=== PATIENT | female | born 1965 | race Caucasian/White ===

== ENCOUNTER 2017-03-21 08:32 | Emergency (ER) | payer SELFPAY ==
[2017-03-21 08:41] VITALS: BP 138/80; PULSE 88; RESP 18; TEMP 98; O2SAT 98
[2017-03-21] MEDS ORDERED: SODIUM CHLOR 0.9% 1000 ML INJ 1,000 ML IV SCH (08:46)
--- NOTE | 2017-03-21 08:52 | PD ---
HPI Chief Complaint: Psychiatric Symptoms Time Seen by Provider: 08:46 Travel History International Travel<30 days: No Contact w/Intl Traveler<30days: No Traveled to known affect area: No History of Present Illness HPI The patient is a 51-year-old female who presents to the emergency department via EMS for abdominal pain and psychiatric evaluation. The patient has a history of schizophrenia and bipolar affective disorder and has not been taking her Lexapro. The patient states she has been living on the streets for the last 2 weeks and people have been yelling "go home you [place] qu[place]o ". The patient states she is having homicidal ideations, states she was to harm the people that are her "an AMI ". She does admit to using crack cocaine, approximately one month ago, and drinking alcohol yesterday. She also complains of nausea and vomiting for the last month with one episode of diarrhea yesterday. She complains of increasing abdominal distention and pain with decreased appetite. She does no previous history of section and cholecystectomy. She denies any known history of small bowel obstruction. Symptoms are moderate, there are no current alleviating or exacerbating factors. PFSH Past Medical History Bipolar Disorder: Yes Anxiety: Yes Depression: Yes Diminished Hearing: No GERD: Yes Psychiatric: Yes Migraines: Yes Schizophrenia: Yes Ulcer: Yes ?: Not Menopausal: Yes Past Surgical History Abdominal Surgery: Yes (CHOLECYSTECTOMY) Section: Yes Cholecystectomy: Yes Social History Alcohol Use: Yes (8 beers daily) Tobacco Use: Yes Substance Use: Yes (crack 1 MONTH AGO ) Allergies-Medications (Allergen,Severity, Reaction): Coded Allergies: No Known Allergies (Verified , 03/21/17) Reported Meds & Prescriptions Reported Meds & Active Scripts Active No Active Prescriptions or Reported Medications Review of Systems Except as stated in HPI: all other systems reviewed are Neg General / Constitutional: No: Fever Cardiovascular: No: Chest Pain or Discomfort Respiratory: No: Shortness of Breath Gastrointestinal: Positive: Nausea, Vomiting, Diarrhea, Abdominal Pain Genitourinary: No: Dysuria Psychiatric: Positive: Disorder of Thought, Mood Disorder, Substance Abuse, Homicidal Ideation Physical Exam Narrative GENERAL: Awake, alert, nontoxic-appearing 51-year-old female who appears her stated age and is in no acute respiratory distress. SKIN: Focused skin assessment warm/dry. HEAD: Atraumatic. Normocephalic. EYES: Pupils equal and round. No scleral icterus. No injection or drainage. ENT: No nasal bleeding or discharge. Mucous membranes pink and moist. NECK: Trachea midline. No JVD. CARDIOVASCULAR: Regular rate and rhythm. No murmur appreciated. RESPIRATORY: No accessory muscle use. Clear to auscultation. Breath sounds equal bilaterally. GASTROINTESTINAL: Abdomen soft, no obvious distention, no rebound tenderness, guarding, or rigidity. MUSCULOSKELETAL: No obvious deformities. No clubbing. No cyanosis. No edema. NEUROLOGICAL: Awake and alert. No obvious cranial nerve deficits. Motor grossly within normal limits. Normal speech. Nonfocal. Oriented to person, place, month, and year. PSYCHIATRIC: Odd affect. Data Data Last Documented VS Vital Signs Date Time Temp Pulse Resp B/P (MAP) Pulse Ox O2 Delivery O2 Flow Rate FiO2 03/21/17 08:41 98.0 88 18 138/80 (99) 98 Orders Orders Complete Blood Count With Diff (03/21/17 08:46) Comprehensive Metabolic Panel (03/21/17 08:46) Lipase (03/21/17 08:46) Urinalysis - C+S If Indicated (03/21/17 08:46) Ct Abd/Pel W/O Iv Contrast (03/21/17 08:46) Iv Access Insert/Monitor (03/21/17 08:46) Ecg Monitoring (03/21/17 08:46) Oximetry (03/21/17 08:46) Morphine Inj (Morphine Inj) (03/21/17 09:00) Ondansetron Inj (Zofran Inj) (03/21/17 09:00) Sodium Chlor 0.9% 1000 Ml Inj (Ns 1000 M (03/21/17 08:46) Sodium Chloride 0.9% Flush (Ns Flush) (03/21/17 09:00) Alcohol (Ethanol) (03/21/17 08:46) Drug Screen, Random Urine (03/21/17 08:46) Psych Screen (03/21/17 08:46) Labs Laboratory Tests Test 03/21/17 08:50 03/21/17 09:00 White Blood Count 7.2 TH/MM3 Red Blood Count 4.40 MIL/MM3 Hemoglobin 14.1 GM/DL Hematocrit 41.3 % Mean Corpuscular Volume 93.9 FL Mean Corpuscular Hemoglobin 32.1 PG Mean Corpuscular Hemoglobin Concent 34.2 % Red Cell Distribution Width 13.6 % Platelet Count 250 TH/MM3 Mean Platelet Volume 6.8 FL Neutrophils (%) (Auto) 61.3 % Lymphocytes (%) (Auto) 26.8 % Monocytes (%) (Auto) 7.5 % Eosinophils (%) (Auto) 4.1 % Basophils (%) (Auto) 0.3 % Neutrophils # (Auto) 4.4 TH/MM3 Lymphocytes # (Auto) 1.9 TH/MM3 Monocytes # (Auto) 0.5 TH/MM3 Eosinophils # (Auto) 0.3 TH/MM3 Basophils # (Auto) 0.0 TH/MM3 CBC Comment DIFF FINAL Differential Comment Blood Urea Nitrogen 15 MG/DL Creatinine 0.58 MG/DL Random Glucose 101 MG/DL Total Protein 6.8 GM/DL Albumin 3.7 GM/DL Calcium Level 8.4 MG/DL Alkaline Phosphatase 173 U/L Aspartate Amino Transf (AST/SGOT) 11 U/L Alanine Aminotransferase (ALT/SGPT) 30 U/L Total Bilirubin 0.3 MG/DL Sodium Level 140 MEQ/L Potassium Level 3.7 MEQ/L Chloride Level 108 MEQ/L Carbon Dioxide Level 23.2 MEQ/L Anion Gap 9 MEQ/L Estimat Glomerular Filtration Rate 109 ML/MIN Lipase 246 U/L Ethyl Alcohol Level LESS THAN 3 MG/DL Urine Color YELLOW Urine Turbidity CLEAR Urine pH 6.0 Urine Specific [place] 1.019 Urine Protein NEG mg/dL Urine Glucose (UA) NEG mg/dL Urine Ketones NEG mg/dL Urine Occult Blood NEG Urine Nitrite NEG Urine Bilirubin NEG Urine Urobilinogen LESS THAN 2.0 MG/DL Urine Leukocyte Esterase NEG Urine RBC 1 /hpf Microscopic Urinalysis Comment CULT NOT INDICATED MDM Medical Decision Making Medical Screen Exam Complete: Yes Emergency Medical Condition: Yes Medical Record Reviewed: Yes Interpretation(s) Last Impressions Abdomen/Pelvis CT 03/21/17 0873 Signed Impressions: Service Date/Time: March 09:21 - CONCLUSION: Area of inhomogeneity in the liver could partially be due to the inhomogeneous fatty infiltration and partially related to the ringlike enhancement seen on the study from 2013 of uncertain etiology, however most likely benign. Pieter Noble MD Laboratory Tests Test 03/21/17 08:50 03/21/17 09:00 White Blood Count 7.2 TH/MM3 Red Blood Count 4.40 MIL/MM3 Hemoglobin 14.1 GM/DL Hematocrit 41.3 % Mean Corpuscular Volume 93.9 FL Mean Corpuscular Hemoglobin 32.1 PG Mean Corpuscular Hemoglobin Concent 34.2 % Red Cell Distribution Width 13.6 % Platelet Count 250 TH/MM3 Mean Platelet Volume 6.8 FL Neutrophils (%) (Auto) 61.3 % Lymphocytes (%) (Auto) 26.8 % Monocytes (%) (Auto) 7.5 % Eosinophils (%) (Auto) 4.1 % Basophils (%) (Auto) 0.3 % Neutrophils # (Auto) 4.4 TH/MM3 Lymphocytes # (Auto) 1.9 TH/MM3 Monocytes # (Auto) 0.5 TH/MM3 Eosinophils # (Auto) 0.3 TH/MM3 Basophils # (Auto) 0.0 TH/MM3 CBC Comment DIFF FINAL Differential Comment Blood Urea Nitrogen 15 MG/DL Creatinine 0.58 MG/DL Random Glucose 101 MG/DL Total Protein 6.8 GM/DL Albumin 3.7 GM/DL Calcium Level 8.4 MG/DL Alkaline Phosphatase 173 U/L Aspartate Amino Transf (AST/SGOT) 11 U/L Alanine Aminotransferase (ALT/SGPT) 30 U/L Total Bilirubin 0.3 MG/DL Sodium Level 140 MEQ/L Potassium Level 3.7 MEQ/L Chloride Level 108 MEQ/L Carbon Dioxide Level 23.2 MEQ/L Anion Gap 9 MEQ/L Estimat Glomerular Filtration Rate 109 ML/MIN Lipase 246 U/L Ethyl Alcohol Level LESS THAN 3 MG/DL Urine Color YELLOW Urine Turbidity CLEAR Urine pH 6.0 Urine Specific [place] 1.019 Urine Protein NEG mg/dL Urine Glucose (UA) NEG mg/dL Urine Ketones NEG mg/dL Urine Occult Blood NEG Urine Nitrite NEG Urine Bilirubin NEG Urine Urobilinogen LESS THAN 2.0 MG/DL Urine Leukocyte Esterase NEG Urine RBC 1 /hpf Microscopic Urinalysis Comment CULT NOT INDICATED Differential Diagnosis Differential diagnosis includes schizophrenia, schizoaffective disorder, bipolar affective disorder, substance induced mood disorder, pancreatitis, partial small bowel obstruction, colitis, gastroenteritis, malingering. Narrative Course IV was established, labs are drawn and sent, and the patient was placed on cardiac telemetry monitoring and continuous pulse oximetry monitoring. The patient was administer morphine, Zofran, and IV fluids. Noncontrast CT of the abdomen and pelvis was ordered. The patient's labs are unremarkable, UA was negative. CT reveals chronic lesion in the liver, most likely benign. The patient is medically cleared to be evaluated by psychiatry. Disposition as per psych. Diagnosis Primary Impression: Abdominal pain Qualified Codes: R10.84 - Generalized abdominal pain Additional Impression: Schizophrenia Qualified Codes: F20.9 - Schizophrenia, unspecified Scripts No Active Prescriptions or Reported Meds Condition: Stable Damien Carroll MD Mar 21, 2017 08:52
[2017-03-21] MEDS ORDERED: ONDANSETRON HCL 4 MG/2 ML VIAL IVP ONE (09:00)
[2017-03-21] MEDS ORDERED: MORPHINE SULFATE 4 MG/ML INJ IV PUSH ONE (09:00)
[2017-03-21] MEDS ORDERED: SODIUM CHLORIDE 0.9% FLUSH 10 ML FLUSH IV FLUSH PRN (09:00)
[2017-03-21 09:32] LABS: AUTOMATED NEUTROPHIL # 4.4 TH/MM3 (1.8-7.7); BASOPHIL % 0.3 % (0.0-2.0); EOSINOPHIL # 0.3 TH/MM3 (0-0.4); EOSINOPHIL % 4.1 % (0.0-4.0); HEMATOCRIT 41.3 % (35.0-46.0); HEMO FLAGS DIFF FINAL; LYMPH % 26.8 % (9.0-44.0); LYMPHOCYTE # 1.9 TH/MM3 (1.0-4.8); MEAN CELL VOLUME 93.9 FL (80.0-100.0); MEAN CORPUSCULAR HEMOGLOBIN 32.1 PG (27.0-34.0); MEAN CORPUSCULAR HGB CONC 34.2 % (32.0-36.0); MONO % 7.5 % (0.0-8.0); NEUT % 61.3 % (16.0-70.0); PLATELET COUNT 250 TH/MM3 (150-450); RED CELL DISTRIBUTION WIDTH 13.6 % (11.6-17.2); WHITE BLOOD COUNT 7.2 TH/MM3 (4.0-11.0)
--- NOTE | 2017-03-21 09:47 | RADRPT ---
EXAM DATE/TIME: 03/21/2017 09:21 [facility] COMPARISON: CT ABDOMEN & PELVIS W CONTRAST, August 09, 2013, 8:07. INDICATIONS : Abdominal pain. ORAL CONTRAST: No oral contrast ingested. RADIATION DOSE: 6.11 CTDIvol (mGy) MEDICAL HISTORY : None SURGICAL HISTORY : Cholecystectomy. ENCOUNTER: Initial ACUITY: 1 day PAIN SCALE: 3/10 LOCATION: lower quadrant TECHNIQUE: Volumetric scanning of the abdomen and pelvis was performed. Using automated exposure control and adjustment of the mA and/or kV according to patient size, radiation dose was kept as low as reasonably achievable to obtain optimal diagnostic quality images. DICOM format image data is av ailable electronically for review and comparison. FINDINGS: CT Abdomen: The liver appears inhomogeneous and may be due to inhomogeneous fatty infiltration with a n approximate 1.5 cm cyst. The prior study demonstrated an enhancing ringlike area and the right hepa tic lobe which is barely visualized partially correlating with the area of inhomogeneity described ab ove not significantly changed most likely benign and of uncertain etiology. There is evidence for jose armando or cholecystectomy. The spleen, pancreas, kidneys, adrenals are unremarkable. There is no evidence fo r any appreciable pathological adenopathy, free fluid, or bowel obstruction. Large hiatal hernia is seen. CT pelvis: There is no evidence for mass, abscess formation, or any significant adenopathy within the pelvis. There is a small subcentimeter bone island involving L5 vertebra and not changed. CONCLUSION: Area of inhomogeneity in the liver could partially be due to the inhomogeneous fatty infiltration and partially related to the ringlike enhancement seen on the study from 2013 of uncerta in etiology, however most likely benign. Pieter Noble MD on March 21, 2017 at 9:41 Board Certified Radiologist. This report was verified electronically.
[2017-03-21 09:48] LABS: AST (GOT) 11 U/L (15-37); BLOOD UREA NITROGEN 15 MG/DL (7-18); GLOMERULAR FILTRATION RATE 109 ML/MIN (>89)
[2017-03-21 09:49] LABS: ALT (GPT) 30 U/L (10-53); ANION GAP 9 MEQ/L (5-15); BICARBONATE 23.2 MEQ/L (21.0-32.0); CHLORIDE 108 MEQ/L (98-107); POTASSIUM 3.7 MEQ/L (3.5-5.1); SODIUM (NA) 140 MEQ/L (136-145)
[2017-03-21 09:52] LABS: ALKALINE PHOSPHATASE 173 U/L (45-117); TOTAL BILIRUBIN ADULT 0.3 MG/DL (0.2-1.0)
[2017-03-21 09:52] LABS: BLOOD, URINE NEG (NEG); COMMENT (UR) CULT NOT INDICATED; CULTURE IF INDICATED CULT NOT INDICATED; GLUCOSE,URINE NEG (NEG); KETONE, URINE NEG (NEG); NITRITE,URINE NEG (NEG); URINE COLOR YELLOW (YELLW/STRAW)
[2017-03-21 09:57] LABS: ALCOHOL LESS THAN 3 MG/DL (0-5)
[2017-03-21 12:35] VITALS: BP 140/82; PULSE 84; RESP 16; O2SAT 99
[2017-03-21 21:14] VITALS: BP 128/60; PULSE 73; RESP 18; TEMP 98.2; O2SAT 96
[2017-03-22 02:18] VITALS: BP 119/83; PULSE 69; RESP 17; O2SAT 99
[2017-03-22 03:48] VITALS: BP 119/83; PULSE 69; RESP 17; TEMP 98.2; O2SAT 99
[2017-03-22 06:35] VITALS: BP 138/65; PULSE 69; RESP 18; O2SAT 97
[2017-03-22 09:59] VITALS: BP 132/60; PULSE 91; RESP 18
[2017-03-22] MEDS ORDERED: ACETAMINOPHEN 325 MG TAB PO ONE (14:15)
[2017-03-22 14:58] VITALS: BP 132/61; TEMP 98
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
== END 2017-03-22 16:06 | disposition home or self-care (01) ==
LOC: MERGE 08:32 → NEPE 08:32 → NEPJ 03-22 16:06
DX: R10.84 Generalized abdominal pain (principal); F20.9 Schizophrenia, unspecified; R11.2 Nausea with vomiting, unspecified; R19.7 Diarrhea, unspecified; R45.850 Homicidal ideations; Z72.0 Tobacco use; Z86.59 Personal history of other mental and behavioral disorders; Z87.19 Personal history of other diseases of the digestive system; Z86.69 Personal history of other diseases of the nervous system and sense organs
CPT/HCPCS: 74176; 80053; 80307; 81001; 83690; 85025; 96374; 96375; 99285; J2270; J2405; J7030

== ENCOUNTER 2017-08-23 11:18 | Emergency (ER) | payer SELFPAY ==
[~2017-08-23] VITALS: Ht 160 cm; Wt 68.0 kg
[2017-08-23 11:19] VITALS: BP 148/75; PULSE 88; RESP 18; TEMP 98.2; O2SAT 99
[2017-08-23 12:03] LABS: BACTERIA, URINE OCC /hpf; BILIRUBIN, URINE NEG (NEG); BLOOD, URINE MOD (NEG); GLUCOSE,URINE NEG (NEG); KETONE, URINE NEG (NEG); MUCUS URINE FEW /lpf (OCC); NITRITE,URINE POS (NEG); PH, URINE 5.5 (5.0-8.5); SQUAMOUS EPITHELIAL CELL URINE 1 /hpf (0-5); URINE COLOR YELLOW (YELLW/STRAW); URINE LEUKOCYTE ESTERASE LARGE (NEG); WHITE BLOOD CELL CLUMPS MOD
== END 2017-08-23 12:54 | disposition left against medical advice (07) ==
LOC: NED 11:18
DX: R30.0 Dysuria (principal); B96.20 Unspecified Escherichia coli [E. coli] as the cause of diseases classified elsewhere; Z59.0 Homelessness; Z53.21 Procedure and treatment not carried out due to patient leaving prior to being seen by health care provider
CPT/HCPCS: 81001; 87077; 87086; 87186; 99281

== ENCOUNTER 2017-11-23 21:01 | Emergency (ER) | payer BC ==
[2017-11-23 21:07] VITALS: BP 140/63; PULSE 109; RESP 16; TEMP 98; O2SAT 96
--- NOTE | 2017-11-23 21:33 | PD ---
HPI Chief Complaint: Anxiety Time Seen by Provider: 21:11 Travel History International Travel<30 days: No Contact w/Intl Traveler<30days: No Traveled to known affect area: No History of Present Illness HPI 52-year-old female complains of anxiety and panic attacks. She also is somewhat fearful because she is homeless. She reports drinking alcohol and taking pills. She smokes tobacco. She reports recently moving to the area from [place]. She denies any thoughts of killing herself or killing others. She is not currently experiencing any auditory or visual hallucination. She reports one panic attack yesterday and another panic attack today. Location neuropsych. Severity moderate. PFSH Past Medical History Bipolar Disorder: Yes Anxiety: Yes Depression: Yes COPD: Yes Diminished Hearing: No GERD: Yes Psychiatric: Yes Migraines: Yes Schizophrenia: Yes Ulcer: Yes Tetanus Vaccination: Unknown ?: Not Menopausal: Yes Past Surgical History Abdominal Surgery: Yes (CHOLECYSTECTOMY) Section: Yes Cholecystectomy: Yes Social History Alcohol Use: Yes Tobacco Use: Yes Substance Use: No Allergies-Medications (Allergen,Severity, Reaction): Coded Allergies: No Known Allergies (Verified Allergy, Unknown, 11/23/17) Reported Meds & Prescriptions Reported Meds & Active Scripts Active No Active Prescriptions or Reported Medications Review of Systems Except as stated in HPI: all other systems reviewed are Neg General / Constitutional: No: Fever Physical Exam Narrative GENERAL: 52-year-old female pleasant well-nourished well-developed Vital Signs Date Time Temp Pulse Resp B/P (MAP) Pulse Ox O2 Delivery O2 Flow Rate FiO2 11/23/17 21:07 98.0 109 16 140/63 (88) 96 SKIN: Warm and dry. HEAD: Atraumatic. Normocephalic. EYES: Pupils equal and round. No scleral icterus. No injection or drainage. ENT: No nasal bleeding or discharge. Mucous membranes pink and moist. NECK: Trachea midline. No JVD. CARDIOVASCULAR: Regular rate and rhythm. RESPIRATORY: No accessory muscle use. Clear to auscultation. Breath sounds equal bilaterally. GASTROINTESTINAL: Abdomen soft, non-tender, nondistended. Hepatic and splenic margins not palpable. MUSCULOSKELETAL: Extremities without clubbing, cyanosis, or edema. No obvious deformities. NEUROLOGICAL: Awake and alert. No obvious cranial nerve deficits. Motor grossly within normal limits. Five out of 5 muscle strength in the arms and legs. Normal speech. PSYCHIATRIC: No suicidal or homicidal ideation. No suicidal plan. Positive drug alcohol abuse. No hallucinations. Data Data Last Documented VS Vital Signs Date Time Temp Pulse Resp B/P (MAP) Pulse Ox O2 Delivery O2 Flow Rate FiO2 11/23/17 21:07 98.0 109 16 140/63 (88) 96 MDM Medical Decision Making Medical Screen Exam Complete: Yes Emergency Medical Condition: Yes Medical Record Reviewed: Yes Differential Diagnosis Altered mental status/psychosis due to infection/environmental exposure/ metabolic abnormality, polypharmacy, alcohol abuse/intoxication, illicit or prescribed drug abuse, malingering/secondary gain, non-organic psychiatric disease Narrative Course The patient has no acute psychiatric emergency. She is unfortunately undomiciled now and also has very minimal resources in the community. Case management will help with the bedside with discussion of housing options. Patient may benefit from [facility] as she does drink alcohol and wishes to stop. Diagnosis Primary Impression: Anxiety Additional Impression: Panic attacks Referrals: [facility] needed Scripts No Active Prescriptions or Reported Meds Disposition: 01 DISCHARGE HOME Condition: Stable Alfred Mcgrath MD November 23, 2017 21:33
== END 2017-11-23 22:27 | disposition home or self-care (01) ==
LOC: NEPE 21:01
DX: F41.0 Panic disorder [episodic paroxysmal anxiety] (principal); J44.9 Chronic obstructive pulmonary disease, unspecified; F31.9 Bipolar disorder, unspecified; F20.9 Schizophrenia, unspecified; Z59.0 Homelessness; Z72.0 Tobacco use
CPT/HCPCS: 99281